=== PATIENT | male | born 1995 | race Caucasian/White ===

== ENCOUNTER 2016-04-25 21:40 | Emergency (ER) | payer OTHER ==
[~2016-04-25] VITALS: Ht 180.3 cm; Wt 62.7 kg
[2016-04-25 21:43] VITALS: TEMP 36.9; Ht 180.3 cm; Wt 62.7 kg
[2016-04-25] MEDS ORDERED: MULT-513 PO (21:52)
[2016-04-25] MEDS ORDERED: IBUP-103 PO (21:52)
[2016-04-25] MEDS ORDERED: OXYCODONE HCL IR 5 MG TAB (IMMEDIATE RELEASE) PO STA (21:55)
--- NOTE | 2016-04-25 22:23 | DIAGNOSTIC IMAGING REPORT ---
SINGLE VIEW CERVICAL SPINE CLINICAL HISTORY: Neck pain. Fall. FINDINGS: A single crosstable lateral view of the cervical spine is obtained. No prior studies are available for comparison at the time of dictation. The skeletal structures are well mineralized. The examination was performed through a cervical collar degrading fine bony detail. There is no radiographic evidence of fracture on this single lateral view. Vertebral body height and alignment are maintained. There is straightening of the cervical lordosis with mild reversal centered at C4-C5. The spinolaminar line is preserved. The spinous processes appear intact. The intervertebral disc spaces are maintained. The prevertebral soft tissues are normal as imaged. IMPRESSION: There is no radiographic evidence of cervical spine fracture on this single lateral projection. Electronically signed by: Master Kay M.D. 04/25/2016 10:21 PM Dictated Date/Time: 04/25/2016 10:20 PM
[2016-04-25 23:13] VITALS: BP 109/70; PULSE 70; O2SAT 98
--- NOTE | 2016-04-25 23:34 | EMERGENCY ROOM VISIT NOTE ---
History First contact with patient: 21:47 Chief Complaint: NECK PAIN Stated Complaint: SEVERE NECK PAIN History of Present Illness The patient is a 20 year old male who presents to the Emergency Room with complaints of severe neck pain after slipping and falling on a wet hallway floor. The patient denies any headache or loss of consciousness. He also denies any back pain, chest pain or shortness of breath. The patient denies any numbness, tingling or burning sensation across the top of the shoulders or down the arms. He rates his discomfort an 8 out of 10. Review of Systems 10 system review was performed and was negative except for pertinent positives and negatives as indicated in history of present illness Past Medical/Surgical History Medical Problems: (1) No significant past medical history Surgical Problems: (1) History of hernia surgery Family History No significant family history Social History Smoking Status: Never Smoker Alcohol Use: occasionally Marital Status: single Occupation Status: [employer] student Current/Historical Medications Scheduled Ibuprofen Tab (Advil), 400 MG PO PRN UD Multivitamins/Minerals (Mvi With Minerals), 1 TAB PO DAILY Allergies Coded Allergies: No Known Allergies (Unverified , 04/25/16) Physical Exam Vital Signs Date Time Temp Pulse Resp B/P Pulse Ox O2 Delivery O2 Flow Rate FiO2 04/25/16 23:13 70 18 109/70 98 Room Air 04/25/16 21:43 36.9 65 18 119/71 96 Room Air Physical Exam CONSTITUTIONAL: Healthy and well nourished. Alert and oriented X 3 with positive affect. Patient appears in moderate discomfort from pain. HEENT: Normocephalic, atraumatic. Pupils equal, round and reactive. No subconjunctival hemorrhage, epistaxis, hemotympanum, raccoon's eyes or Koo sign. NECK: Examination shows general tenderness to palpation of the posterior neck region, specifically the paraspinous muscles and trapezius muscles. No obvious palpable step-offs noted to the central cervical spine. RESPIRATORY: Clear to auscultation bilaterally with no wheezing, crackles, rhonchi or stridor. MUSCULOSKELETAL: Full range of motion of the shoulders without discomfort. Equal hand city sanitarian bilaterally. INTEGUMENTARY: No rash or other significant dermatologic conditions noted. NEUROLOGIC: Upper and lower extremities are sensory intact. Deltoid sensations are intact bilaterally. Medical Decision & Procedures ER Provider Diagnostic Interpretation: My interpretation of cervical spine x-rays does not show any acute fractures or dislocations. Cervical lordotic reversal is noted. Radiologist report was completed for the lateral clearance view. Remaining x-rays are still to be read by our radiologist. X-rays were reviewed with Dr. Mckeon, ED attending physician. Medications Administered Medications (Trade) Dose Ordered Sig/Floresita Route Start Time Stop Time Status Last Admin Dose Admin Oxycodone HCl (Roxicodone Immediate Rel Tab) 5 mg NOW STAT PO 04/25/16 21:55 04/25/16 21:56 DC 04/25/16 22:02 5 MG ED Course Patient history and physical exam were performed. Nurse's notes were reviewed. Vital signs were reviewed and were normal. A cervical collar was applied. The patient was administered OxyIR 5 mg for pain. X-rays of the cervical spine were normal. The patient was encouraged to intermittently apply ice for the next few days, then moist heat as needed. Ibuprofen and Tylenol in alternating fashion as needed for additional pain relief. Follow-up with [facility] as needed for any persistent pain. The patient was happy with plan of care, voiced understanding of all discharge instructions, and rated his discomfort a 4 out of 10 at the time of discharge. Medical Decision Impression Primary Impression: Cervical strain, acute Additional Impression: Fall from slipping on slippery surface Departure Information Referrals No Doctor, Assigned (PCP) Patient Instructions My [facility] Problem Qualifiers Primary Impression: Cervical strain, acute Encounter type: initial encounter Qualified Codes: S16.1XXA - Strain of muscle, fascia and tendon at neck level, initial encounter Additional Impression: Fall from slipping on slippery surface Encounter type: initial encounter Qualified Codes: W01.0XXA - Fall on same level from slipping, tripping and stumbling without subsequent striking against object, initial encounter
--- NOTE | 2016-04-26 07:46 | DIAGNOSTIC IMAGING REPORT ---
CERVICAL SPINE 5 VIEWS HISTORY: NECK PAIN S/P FALL ON FLOOR COMPARISON: Cervical spine 04/25/2016. FINDINGS: The cervical spine is visualized from C1 through the superior endplate of T1. There is no fracture. No subluxation. Mild disc space narrowing at C5-C6. Prevertebral soft tissues and the atlantodens interval are intact. There is reversal of the normal lordotic curvature. IMPRESSION: No fracture or subluxation within the cervical spine. Reversal of the normal lordotic curvature. Electronically signed by: Nelson Bains M.D. 04/26/2016 7:45 AM Dictated Date/Time: 04/26/2016 7:41 AM
== END 2016-04-25 23:40 | disposition home or self-care (01) ==
LOC: C.EDB 21:43 → C.EDC 23:40
DX: S16.1XXA Strain of muscle, fascia and tendon at neck level, initial encounter (principal); W00.0XXA Fall on same level due to ice and snow, initial encounter

== ENCOUNTER 2017-07-06 22:20 | Emergency (ER) | payer OTHER ==
[~2017-07-06] VITALS: Ht 182.9 cm; Wt 61.5 kg
[~2017-07-06 22:20] MED LIST: IBUP-103 PO; MULT-513 PO
[2017-07-06 22:24] VITALS: TEMP 36.9; Ht 182.9 cm; Wt 61.5 kg
[2017-07-06] MEDS ORDERED: SODIUM CHLORIDE 0.9% 1000ML 1,000 ML IV STA ×2 (22:54→23:38)
[2017-07-06] MEDS ORDERED: ONDANSETRON INJ 2 MG/ML 2 ML VIAL IV STA (22:54)
--- NOTE | 2017-07-06 23:03 | EMERGENCY ROOM VISIT NOTE ---
History Report prepared by Florindaibjose: Lemuel Santos Under the Supervision of: Dr. Justin May M.D. First contact with patient: 22:32 Chief Complaint: NAUSEA Stated Complaint: NAUSEA, DIFFICULTY OPENING HANDS Nursing Triage Summary: PT presents with N/A for about 2 hrs, has vomited about 8 times. Per friend "there has been a bad stomach bug going around, I think he has it" PT has bilateral cramping of hands, skin very clammy and pale. History of Present Illness The patient is a 22 year old white male with a past medical history of recent hernia surgery who presents to the ED with a cc of intermittent vomiting beginning two hours ago. He rates his discomfort as a 10/10 in severity. The patient reports he has vomited about 8 times today. Positive hand cramping, chills, sick contact. Negative abdominal pain. The patient states his last bowel movement was yesterday and was normal. Source of History: patient Onset: two hours ago Position: other (global) Symptom Intensity: 10/10 Timing: intermittent Associated Symptoms: + chills, No abdominal pain Note: Associated symptoms: hand cramping Review of Systems See HPI for pertinent positives and negatives. A total of ten systems were reviewed and were otherwise negative. Past Medical & Surgical Medical Problems: (1) No significant past medical history Surgical Problems: (1) History of hernia surgery Family History No significant family history Social History Smoking Status: Never Smoker Alcohol Use: occasionally Marital Status: single Occupation Status: [employer] student Current/Historical Medications Scheduled Pot Phosphate Monobasic W/ Sod (Phospha 250 Neutral), 2 TAB PO TID Scheduled PRN Ondansetron Hcl (Zofran), 4 MG PO Q8H PRN for Nausea Allergies Coded Allergies: No Known Allergies (Unverified , 04/25/16) Physical Exam Vital Signs Date Time Temp Pulse Resp B/P (MAP) Pulse Ox O2 Delivery O2 Flow Rate FiO2 07/07/17 01:39 99 20 97/50 96 07/07/17 00:52 91 18 100/45 96 Room Air 07/07/17 00:15 86 07/06/17 22:24 36.9 82 18 128/63 98 Room Air Physical Exam GENERAL: Awake, alert, well-appearing, NAD, Rigors present. HENT: Normocephalic, atraumatic. EYES: Normal conjunctiva. Sclera non-icteric. NECK: Supple. No nuchal rigidity. FROM. RESPIRATORY: CTAB, no rhonchi, wheezing, crackles. CARDIAC: RRR, no MRG ABDOMEN: Soft, ND, BS+, Mild diffuse abdominal discomfort, nonsurgical abdomen. MSK: No chest wall TTP, no LE edema NEURO: GCS 15, CN 2-12 intact, moves all 4s on command, Negative Chvostek sign, Decreased sap specialist strength bilaterally. Good symmetric strength of the proximal in the upper extremities. 5/5 in the bilateral lower extremities. SKIN: No rash or jaundice noted. Medical Decision & Procedures ER Provider Diagnostic Interpretation: X-ray: Per my interpretation, my review. KUB X-RAY No free air under the diaphragm, gas seen in the ascending, transverse, and descending colon. A little bit of stool in the rectum. Bony elements appear in tact. Laboratory Results 07/06/17 22:40 Red Blood Count 4.93, Mean Corpuscular Volume 87.2, Mean Corpuscular Hemoglobin 32.0, Mean Corpuscular Hemoglobin Concent 36.7, Mean Platelet Volume 10.0, Neutrophils (%) (Auto) 78.0, Lymphocytes (%) (Auto) 15.0, Monocytes (%) (Auto) 6.0, Eosinophils (%) (Auto) 0.7, Basophils (%) (Auto) 0.1, Neutrophils # (Auto) 11.48, Lymphocytes # (Auto) 2.21, Monocytes # (Auto) 0.88, Eosinophils # (Auto) 0.10, Basophils # (Auto) 0.02 07/06/17 22:40 Test 07/06/17 22:40 07/06/17 23:20 07/06/17 23:55 White Blood Count 14.72 K/uL (4.8-10.8) Red Blood Count 4.93 M/uL (4.7-6.1) Hemoglobin 15.8 g/dL (14.0-18.0) Hematocrit 43.0 % (42-52) Mean Corpuscular Volume 87.2 fL (80-100) Mean Corpuscular Hemoglobin 32.0 pg (25-34) Mean Corpuscular Hemoglobin Concent 36.7 g/dl (32-36) Platelet Count 231 K/uL (130-400) Mean Platelet Volume 10.0 fL (7.4-10.4) Neutrophils (%) (Auto) 78.0 % Lymphocytes (%) (Auto) 15.0 % Monocytes (%) (Auto) 6.0 % Eosinophils (%) (Auto) 0.7 % Basophils (%) (Auto) 0.1 % Neutrophils # (Auto) 11.48 K/uL (1.4-6.5) Lymphocytes # (Auto) 2.21 K/uL (1.2-3.4) Monocytes # (Auto) 0.88 K/uL (0.11-0.59) Eosinophils # (Auto) 0.10 K/uL (0-0.5) Basophils # (Auto) 0.02 K/uL (0-0.2) RDW Standard Deviation 36.9 fL (36.4-46.3) RDW Coefficient of Variation 11.6 % (11.5-14.5) Immature Granulocyte % (Auto) 0.2 % Immature Granulocyte # (Auto) 0.03 K/uL (0.00-0.02) Anion Gap 17.0 mmol/L (3-11) Est Creatinine Clear Calc Drug Dose 89.2 ml/min Estimated GFR () 106.3 Estimated GFR (Non- 91.8 BUN/Creatinine Ratio 14.8 (10-20) Calcium Level 9.5 mg/dl (8.5-10.1) Phosphorus Level 1.4 mg/dl (2.5-4.9) Magnesium Level 2.0 mg/dl (1.8-2.4) Total Bilirubin 0.8 mg/dl (0.2-1) Direct Bilirubin 0.1 mg/dl (0-0.2) Aspartate Amino Transf (AST/SGOT) 25 U/L (15-37) Alanine Aminotransferase (ALT/SGPT) 28 U/L (12-78) Alkaline Phosphatase 54 U/L (45-117) Total Protein 7.8 gm/dl (6.4-8.2) Albumin 4.8 gm/dl (3.4-5.0) Lipase 168 U/L (73-393) Influenza Type A Antigen Neg for Influ A (NEG) Influenza Type B Antigen Neg for Influ B (NEG) Urine Color YELLOW Urine Appearance CLEAR (CLEAR) Urine pH 6.0 (4.5-7.5) Urine Specific Shafer 1.020 (1.000-1.030) Urine Protein NEG (NEG) Urine Glucose (UA) NEG (NEG) Urine Ketones NEG (NEG) Urine Occult Blood NEG (NEG) Urine Nitrite NEG (NEG) Urine Bilirubin NEG (NEG) Urine Urobilinogen NEG (NEG) Urine Leukocyte Esterase NEG (NEG) Laboratory results reviewed by me Medications Administered Medications (Trade) Dose Ordered Sig/Floresita Route Start Time Stop Time Status Last Admin Dose Admin Sodium Chloride 1,000 ml @ 999 mls/hr Q1H1M STAT IV 07/06/17 22:54 07/06/17 23:54 DC 07/06/17 23:04 999 MLS/HR Ondansetron HCl (Zofran Inj) 4 mg NOW STAT IV 07/06/17 22:54 07/06/17 22:56 DC 07/06/17 23:16 4 MG Sodium Chloride 1,000 ml @ 999 mls/hr Q1H1M STAT IV 07/06/17 23:38 07/07/17 00:38 DC 07/07/17 00:02 999 MLS/HR Potassium Chloride (Klor-Con Tab) 40 meq NOW STAT PO 07/06/17 23:52 07/06/17 23:53 DC 07/07/17 00:47 40 MEQ Potassium/ Phosphorus/Sodium (Phospha 250 Neutral 155-852-130 Mg) 2 tab ONE STAT PO 07/07/17 00:27 07/07/17 00:28 DC 07/07/17 00:47 2 TAB Metoclopramide HCl (Reglan Inj) 10 mg NOW STAT IV. 07/07/17 00:36 07/07/17 00:37 DC 07/07/17 00:46 10 MG ED Course 2243: The patient was evaluated in room A02. A complete history and physical exam was performed. 0139: I reevaluated the patient. Discussed results and discharge instructions: He verbalized understanding and agreement. The patient is ready for discharge. Medical Decision Nursing notes reviewed. Ancillary studies and prior records reviewed. The patient is a 22 year old white male with a past medical history of recent hernia surgery who presents to the ED with a cc of intermittent vomiting beginning two hours ago. The patient's presentation and history were concerning for etiologies such as gastroenteritis, food borne illness, infections, appendicitis, diverticulitis, inflammatory bowel disease, obstruction, GI bleed, biliary pathology, as well as others were entertained. Patient was seen and evaluated the bedside. Patient states that he has had some persistent nausea with vomiting. Of note the patient has had some roommates that have had some similar symptoms. Of note there has been some normal virus and the patient is also concerned that he may be infected. Patient does have a softer blood pressure and some mild tachycardia. Patient does have some difficulty with sap specialist strength but I believe this is likely related to a possible electrolyte abnormality and dehydration as it is bilateral and the patient denies any back pain, trauma, or headache. Patient has no prior history of seizure. Patient did have blood work completed and was given IV fluids, and antiemetics. A KUB was also performed. Patient's blood work will blood cell count of 14 with mild left shift. Patient did have noted hypokalemia which was repleted. Patient also did have hypophosphatemia given replacement. I did discuss possible outpatient therapy with the pharmacist who recommended 2 tabs of Neutra -Phos 3 times daily 2 days. Patient did have an abnormal bicarb and slightly elevated anion gap. I believe this is likely related to the patient's vomiting and dehydration. Patient's KUB did show that the patient did have bowel gas present did have some mild fecal retention. Patient was subsequently reassessed. The patient was only feeling mildly improved so was given additional IV fluids and something for nausea. Upon reassessment the patient was feeling improved the patient had normal sap specialist strength and was able to move about without difficulty. Patient was able tolerate p.o. patient less likely to have an obstruction. Patient was given prescriptions for his Neutra-Phos as well as Zofran, told to hydrate well, avoid alcohol, and was given strict follow-up and return precautions. Patient was given strict follow-up, discharge, and return precautions. All questions were answered. Patient was deemed suitable for outpatient follow-up at this time. Patient agreed with the plan of care and was safely discharged home. Medication Reconcilliation Current Medication List: was personally reviewed by me Blood Pressure Screening Patient's blood pressure: Normal blood pressure Impression Primary Impression: Gastroenteritis Additional Impressions: Hypokalemia Hypophosphatemia Scribe Attestation The scribe's documentation has been prepared under my direction and personally reviewed by me in its entirety. I confirm that the note above accurately reflects all work, treatment, procedures, and medical decision making performed by me. Departure Information Dispostion Home / Self-Care Prescriptions Ondansetron Hcl (ZOFRAN) 4 Mg Tab 4 MG PO Q8H Y for Nausea, #12 TAB Prov: Justin May M.D. 07/07/17 Pot Phosphate Monobasic W/ Sod (PHOSPHA 250 NEUTRAL) 1 Tab Tab 2 TAB PO TID for 2 Days, #12 TAB Prov: Justin May M.D. 07/07/17 Referrals No Doctor, Assigned (PCP) Patient Instructions Hypokalemia Dc, Hypophosphatemia Dc, My [facility] Additional Instructions Please return to the emergency department if you have worsening or recurrent symptoms not amenable to at-home treatment. Please call for a follow-up appointment with her primary care physician. Please take your medications as prescribed. If you have other concerns and/or complaints please feel free to also call your primary care physician's office or return the ED for further evaluation, management, and treatment. Please continue a bland diet and advance it as tolerated. Start slowly with clear liquids and advance to soups and broths. Avoid any alcohol. Take your medications as prescribed. Increase the potassium in your diet or consider taking a supplement. Transmission of Norovirus: [id number] transmission of norovirus occurs via the fecal-oral route, with an incubation period of 24 to 48 hours. You have been examined and treated today on an emergency basis only. This is not a substitute for, or an effort to provide, complete comprehensive medical care. It is impossible to recognize and treat all injuries or illnesses in a single emergency department visit. It is therefore important that you follow up closely with [facility], your PCP, and/or your specialist(s). Call as soon as possible for an appointment. Thank you for your time and consideration. I look forward to speaking with you again soon. Please don't hesitate to call us if you have any questions. Problem Qualifiers
[2017-07-06 23:10] LABS: BASO % 0.1 %; BASO ABS # 0.02 K/uL (0-0.2); EOS % 0.7 %; HEMOGLOBIN 15.8 g/dL (14.0-18.0); IG# 0.03 K/uL (0.00-0.02); LYMPH ABS # 2.21 K/uL (1.2-3.4); MEAN CELL VOLUME 87.2 fL (80-100); MEAN CORPUSCULAR HGB CONC 36.7 g/dl (32-36); MONO ABS # 0.88 K/uL (0.11-0.59); NEUT ABS # 11.48 K/uL (1.4-6.5); PLATELET COUNT 231 K/uL (130-400); RED CELL DISTRIBUTION WIDTH CV 11.6 % (11.5-14.5); RED CELL DISTRIBUTION WIDTH SD 36.9 fL (36.4-46.3); WHITE BLOOD COUNT 14.72 K/uL (4.8-10.8)
[2017-07-06 23:28] LABS: ALBUMIN 4.8 gm/dl (3.4-5.0); CALCIUM 9.5 mg/dl (8.5-10.1); CREATININE 1.13 mg/dl (0.60-1.40); POTASSIUM 3.2 mmol/L (3.5-5.1)
[2017-07-06] MEDS ORDERED: POTASSIUM CHLORIDE 20 MEQ TABCR PO STA (23:52)
[2017-07-06 23:55] LABS: PHOSPHORUS 1.4 mg/dl (2.5-4.9); TOTAL PROTEIN 7.8 gm/dl (6.4-8.2)
[2017-07-06 23:58] LABS: INFLUENZA B ANTIGEN Neg for Influ B (NEG)
[2017-07-07] MEDS ORDERED: POT PHOSPHATE MONOBASIC W/ SOD TAB PO STA (00:27)
[2017-07-07] MEDS ORDERED: METOCLOPRAMIDE HCL INJ 5 MG/ML 2 ML VIAL IV. STA (00:36)
[2017-07-07] MEDS ORDERED: ONDA4TAB46 PO (01:24)
[2017-07-07] MEDS ORDERED: POTTAB2 PO (01:24)
[2017-07-07 01:39] VITALS: BP 97/50; PULSE 99; O2SAT 96
--- NOTE | 2017-07-07 07:27 | DIAGNOSTIC IMAGING REPORT ---
KUB CLINICAL HISTORY: Abdominal pain, nausea, vomiting COMPARISON STUDY: No previous studies for comparison. FINDINGS: There are no transition zones indicate a high-grade bowel obstruction. There are borderline dilated mid abdominal small bowel loops. There is a tiny left pelvic basin calcification likely representing a phlebolith. IMPRESSION: Nonspecific bowel gas pattern. Borderline dilated mid abdominal small bowel loops. No current evidence of a high-grade bowel obstruction. Electronically signed by: Eben Ashford M.D. 07/07/2017 7:26 AM Dictated Date/Time: 07/07/2017 7:25 AM
== END 2017-07-07 01:41 | disposition home or self-care (01) ==
LOC: C.EDB 22:21 → C.EDA 07-07 01:41
DX: K52.9 Noninfective gastroenteritis and colitis, unspecified (principal); E87.6 Hypokalemia; E83.39 Other disorders of phosphorus metabolism